=== PATIENT | male | born 1955 | race Caucasian/White ===

== ENCOUNTER 2018-01-31 19:55 | Inpatient (IN) | payer MEDICARE ==
[~2018-01-31] VITALS: Ht 175.3 cm; Wt 82.1 kg
[2018-01-31 20:28] LABS: BASOPHILS # (AUTO) 0.1 (0.0-0.1); BASOPHILS % 0.8 % (0.0-1.0); EOSINOPHILS # (AUTO) 0.1 (0.0-0.4); EOSINOPHILS % 0.9 % (0.0-6.0); HEMATOCRIT 40.2 % (38.2-49.6); HEMOGLOBIN 13.9 g/dL (14.0-18.0); LYMPHOCYTES % 26.8 % (18.0-39.1); MEAN CORPUSCULAR HEMOGLOBIN 29.3 pg (28-32); MEAN CORPUSCULAR HGB CONC 34.6 g/dL (31-35); MEAN CORPUSCULAR VOLUME 84.6 fL (81-99); MONOCYTES # (AUTO) 1.4 (0.2-0.8); MONOCYTES % 9.5 % (4.4-11.3); NEUTROPHILS # (AUTO) 9.1 (2.1-6.9); NEUTROPHILS % 61.4 % (38.7-80.0); PLATELET COUNT 281 x10e3/uL (140-360); RED BLOOD COUNT 4.75 x10e6/uL (4.3-5.7); RED CELL DISTRIBUTION WIDTH 15.6 % (11.7-14.4)
[2018-01-31 20:34] LABS: INR 1.05; PROTHROMBIN TIME 12.9 seconds (11.9-14.5)
[2018-01-31 20:35] LABS: PARTIAL THROMBOPLASTIN TIME 29.8 seconds (23.8-35.5)
[2018-01-31 20:41] LABS: ALBUMIN/GLOBULIN RATIO 1.2 (0.8-2.0); ANION GAP 15.8 mmol/L (8-16); CALCIUM 9.5 mg/dL (8.4-10.2); CREATININE, SERUM 1.35 mg/dL (0.72-1.25); POTASSIUM 3.8 mmol/L (3.5-5.1)
[2018-01-31] MEDS ORDERED: PIPER-TAZ 3.375 GM 50 ML ONE (20:59)
[2018-01-31] MEDS ORDERED: VANCOMYCIN 1GM/NS 250 ML 250 ML ONE (20:59)
[2018-01-31] MEDS: PIPER-TAZ 3.375 GM 50 ML IV SCH (21:15)
[2018-01-31] MEDS: VANCOMYCIN 1GM/NS 250 ML 250 ML IV SCH (21:31)
[2018-01-31] MEDS ORDERED: VANCOMYCIN 1GM/NS 250 ML 250 ML IV SCH (22:00)
[2018-01-31] MEDS ORDERED: DEXTROSE 50% SYRINGE 50 ML IV PRN (22:15)
[2018-01-31] MEDS ORDERED: ONDANSETRON HCL INJ 2 MG/ML VIAL IV PRN (22:15)
[2018-01-31] MEDS ORDERED: HYDROMORPHONE 1MG/1ML INJ IV PRN (22:15)
[2018-01-31] MEDS ORDERED: GABAPENTIN300 MG PO (22:21)
[2018-01-31] MEDS ORDERED: BUPROPION XL150 MG PO (22:21)
[2018-01-31] MEDS ORDERED: JARDIANCE PO (22:21)
[2018-01-31] MEDS ORDERED: OMEPRAZOLE20 MG PO (22:21)
[2018-01-31] MEDS ORDERED: LORAZEPAM1 MG PO (22:21)
[2018-01-31] MEDS ORDERED: GENVOYA PO (22:21)
[2018-01-31] MEDS ORDERED: TESTOSTERO200 MG/1 M IM (22:21)
[2018-01-31] MEDS ORDERED: CRESTOR40 MG PO (22:21)
[2018-01-31] MEDS ORDERED: ACYCLOVIR400 MG PO (22:21)
[2018-01-31] MEDS ORDERED: METFORMIN HCL500 M1 PO (22:21)
[2018-01-31 23:25] VITALS: BP 138/85
[2018-01-31 23:51] VITALS: BP 138/85
[2018-02-01] VITALS (9 sets, daily range): BP systolic 100–138; BP diastolic 56–85
[2018-02-01] MEDS: SODIUM CHLORIDE 0.9% 1000ML 1,000 ML IV SCH ×2 (00:28→06:15)
[2018-02-01] MEDS: PIPER-TAZ 3.375 GM 50 ML IV SCH ×3 (05:26→22:19)
[2018-02-01 05:40] LABS: BASOPHILS # (AUTO) 0.1 (0.0-0.1); BASOPHILS % 0.9 % (0.0-1.0); EOSINOPHILS # (AUTO) 0.2 (0.0-0.4); EOSINOPHILS % 1.3 % (0.0-6.0); HEMATOCRIT 40.3 % (38.2-49.6); HEMOGLOBIN 13.2 g/dL (14.0-18.0); LYMPHOCYTES # (AUTO) 3.6 (1.0-3.2); LYMPHOCYTES % 24.5 % (18.0-39.1); MEAN CORPUSCULAR HEMOGLOBIN 29.1 pg (28-32); MEAN CORPUSCULAR HGB CONC 32.8 g/dL (31-35); MEAN CORPUSCULAR VOLUME 88.8 fL (81-99); MONOCYTES # (AUTO) 1.5 (0.2-0.8); MONOCYTES % 10.1 % (4.4-11.3); NEUTROPHILS # (AUTO) 9.1 (2.1-6.9); NEUTROPHILS % 62.7 % (38.7-80.0); PLATELET COUNT 262 x10e3/uL (140-360); RED BLOOD COUNT 4.54 x10e6/uL (4.3-5.7); RED CELL DISTRIBUTION WIDTH 15.7 % (11.7-14.4)
[2018-02-01 06:11] LABS: ALANINE AMINOTRANSFERASE 19 IU/L (0-55); ALBUMIN 3.2 g/dL (3.5-5.0); ALKALINE PHOSPHATASE 80 IU/L (40-150); ANION GAP 11.9 mmol/L (8-16); BLOOD UREA NITROGEN 17 mg/dL (7-26); BUN/CREATININE RATIO 15 (6-25); CARBON DIOXIDE 23 mmol/L (22-29); CHLORIDE 108 mmol/L (98-107); CREATININE, SERUM 1.11 mg/dL (0.72-1.25); EST GLOMERULAR FILTRATION RATE > 60 ML/MIN (60-); GLUCOSE 127 mg/dL (74-118); POTASSIUM 3.9 mmol/L (3.5-5.1); SODIUM 139 mmol/L (136-145)
[2018-02-01 06:30] LABS: ALBUMIN/GLOBULIN RATIO 1.1 (0.8-2.0)
[2018-02-01] MEDS: INSULIN REGULAR, HUMAN 100 UNIT/1 ML 3ML VIAL SQ SCH ×4 (07:30→20:43)
[2018-02-01] MEDS: VANCOMYCIN 1GM/NS 250 ML 250 ML IV SCH ×2 (08:48→20:58)
[2018-02-01] MEDS: GABAPENTIN 300 MG CAP PO SCH ×3 (08:54→21:00)
[2018-02-01] MEDS: BUPROPION HCL 150 MG TABCR PO SCH (08:54)
[2018-02-01] MEDS: GENVOYA TABLET PO SCH (08:54)
[2018-02-01] MEDS: PANTOPRAZOLE SOD 40 MG TABEC PO SCH (08:54)
[2018-02-01] MEDS: ACYCLOVIR 200 MG CAP PO SCH ×2 (08:54→17:00)
[2018-02-01] MEDS: JARDIANCE 25 MG TAB PO SCH (08:54)
--- NOTE | 2018-02-01 14:03 | History and Physical ---
PRIMARY CARE PROVIDER: Is in [place]. He is visiting. CHIEF COMPLAINT: Swelling and erythema of left ankle. HISTORY OF PRESENT ILLNESS: Mr. Solis is a 62-year-old gentleman who flew in 2 days ago from [place], woke up with some swelling and erythema about the left ankle. Was told by his friend that he might have a blood clot. He came to the ER for evaluation. REVIEW OF SYSTEMS: He denies fever, chills or weight loss. He denies sinus congestion or sore throat. He denies chest pain or palpitations. He denies shortness of breath, wheezing or cough. He denies abdominal pain, nausea, vomiting or melena. He denies dysuria or flank pain. He denies rash or pruritus. He denies joint pain or swelling. He denies headache, vertigo or loss of consciousness. He denies depression, agitation, homicidal or suicidal ideation. PAST MEDICAL HISTORY: Significant for longstanding hypertension, type 2 diabetes, hyperlipidemia, and HIV disease diagnosed in 1988. He has a distant history of tonsillectomy. MEDICATIONS: His current medications include 1. Metformin 1000 mg twice daily. 2. Jardiance 25 mg daily. 3. Crestor 40 mg daily. 4. Bupropion/Wellbutrin XL 450 mg daily. 5. Acyclovir 400 mg twice daily. 6. Genvoya, which is his HIV medication which is Truvada plus another medication, and he takes 1 daily. 7. Omeprazole 20 mg daily for GERD. ALLERGIES: HE HAS A STATED ALLERGY TO CODEINE. FAMILY HISTORY: Remarkable for some scattered hypertension and diabetes. SOCIAL HISTORY: The patient is . Montserratian is his primary language. He is homosexual in stable relationships. He does not smoke, drink or use illegal drugs, and he is generally independently functioning. PHYSICAL EXAM: PSYCHIATRIC: He is alert and oriented times 3 with normal mood and affect. CONSTITUTIONAL: He has a normal body habitus. Is in no acute distress. VITAL SIGNS: Blood pressure 109/79. Pulse 90 and regular. Respiratory rate 20. O2 sat 97% on room air. Temperature 98.5. HEENT: His head is atraumatic. His eyes are anicteric with clear conjunctivae. Ears and nares are without erythema or discharge. Oropharynx is clear. NECK: Is supple with no mass or thyromegaly. LYMPHATIC SYSTEM: He has no palpable cervical, axillary or inguinal adenopathy. CARDIOVASCULAR: His heart has a regular rate and rhythm without murmur or extra heart sound. He has no carotid bruit. He has palpable dorsal pedal pulses. He has some mild swelling about the right ankle. The left ankle has no edema. RESPIRATORY: Lungs are clear to auscultation and percussion with normal respiratory effort. GASTROINTESTINAL: His abdomen is soft without organomegaly, masses or tenderness. CUTANEOUS: His skin is warm and dry to the touch. He has marked erythema to the mid rodriguez on the left leg with marked erythema centered around the medial malleolus extending onto the top of the forefoot. MUSCULOSKELETAL: His joints are in normal alignment without erythema or swelling. He has no calf tenderness. NEUROLOGIC: Exam is nonfocal with intact cranial nerves and no motor or sensory deficits. DIAGNOSTIC STUDIES: Bilateral venous Dopplers were negative for DVT. CBC shows a white count of 14.5 with 62% neutrophils, hemoglobin 13.2, hematocrit 40.3 and platelet count 262,000. Chemistry showed normal electrolytes. CO2 23. Creatinine 1.11, BUN 17 for a normal GFR. Glucose 127. Transaminases, bilirubin, alk phos are normal. Coags are normal. IMPRESSION AND PLAN: 1. Cellulitis left lower leg. The patient has been started empirically on IV vancomycin and Zosyn along with elevation. 2. Human immunodeficiency virus disease. The patient currently has an undetectable HIV count. Will continue his current medications, which he will be taking his own home medications. 3. Type 2 diabetes, which appears to be well controlled. Will continue metformin, Jardiance and Neurontin. The type 2 diabetes is complicated by neuropathy, for which he is taking Neurontin as well, plus will add sliding-scale insulin. 4. Hypertension. Currently controlled on no medications. Will monitor. 5. For prophylaxis, the patient will be on Lovenox for DVT prophylaxis and Protonix for GI prophylaxis. Job#: [id number] ALCIDES
[2018-02-01] MEDS: METFORMIN HCL 500 MG TAB CR PO SCH (17:00)
[2018-02-01] MEDS: ENOXAPARIN SOD INJ 40 MG/0.4 ML SYR SC SCH (17:44)
[2018-02-01] MEDS: ATORVASTATIN 40 MG TAB PO SCH (21:00)
[2018-02-02 05:01] LABS: BASOPHILS # (AUTO) 0.1 (0.0-0.1); BASOPHILS % 1.2 % (0.0-1.0); EOSINOPHILS # (AUTO) 0.3 (0.0-0.4); EOSINOPHILS % 3.6 % (0.0-6.0); HEMATOCRIT 37.7 % (38.2-49.6); HEMOGLOBIN 12.5 g/dL (14.0-18.0); LYMPHOCYTES # (AUTO) 2.9 (1.0-3.2); LYMPHOCYTES % 32.4 % (18.0-39.1); MEAN CORPUSCULAR HEMOGLOBIN 29.2 pg (28-32); MEAN CORPUSCULAR HGB CONC 33.2 g/dL (31-35); MEAN CORPUSCULAR VOLUME 88.1 fL (81-99); MONOCYTES # (AUTO) 0.9 (0.2-0.8); MONOCYTES % 10.1 % (4.4-11.3); NEUTROPHILS # (AUTO) 4.6 (2.1-6.9); NEUTROPHILS % 52.1 % (38.7-80.0); PLATELET COUNT 257 x10e3/uL (140-360); RED BLOOD COUNT 4.28 x10e6/uL (4.3-5.7); RED CELL DISTRIBUTION WIDTH 15.7 % (11.7-14.4)
[2018-02-02 05:05] VITALS: BP 102/51
[2018-02-02 05:26] LABS: ANION GAP 13.8 mmol/L (8-16); BLOOD UREA NITROGEN 14 mg/dL (7-26); BUN/CREATININE RATIO 13 (6-25); CARBON DIOXIDE 22 mmol/L (22-29); CHLORIDE 108 mmol/L (98-107); CREATININE, SERUM 1.04 mg/dL (0.72-1.25); EST GLOMERULAR FILTRATION RATE > 60 ML/MIN (60-); GLUCOSE 148 mg/dL (74-118); POTASSIUM 3.8 mmol/L (3.5-5.1); SODIUM 140 mmol/L (136-145)
[2018-02-02] MEDS: PIPER-TAZ 3.375 GM 50 ML IV SCH ×3 (05:44→22:00)
[2018-02-02 05:47] LABS: THYROID STIMULATING HORMONE 2.219 uIU/mL (0.350-4.940)
[2018-02-02] MEDS: INSULIN REGULAR, HUMAN 100 UNIT/1 ML 3ML VIAL SQ SCH ×4 (07:30→21:00)
[2018-02-02 08:00] VITALS: BP 109/75
[2018-02-02] MEDS: METFORMIN HCL 500 MG TAB CR PO SCH ×2 (08:00→17:00)
[2018-02-02] MEDS: BUPROPION HCL 150 MG TABCR PO SCH (09:00)
[2018-02-02] MEDS: JARDIANCE 25 MG TAB PO SCH (09:00)
[2018-02-02] MEDS: PANTOPRAZOLE SOD 40 MG TABEC PO SCH (09:00)
[2018-02-02] MEDS: GENVOYA TABLET PO SCH (09:00)
[2018-02-02] MEDS: GABAPENTIN 300 MG CAP PO SCH ×4 (09:00→20:43)
[2018-02-02] MEDS: ACYCLOVIR 200 MG CAP PO SCH ×2 (09:00→17:00)
[2018-02-02] MEDS: VANCOMYCIN 1GM/NS 250 ML 250 ML IV SCH ×2 (09:56→21:00)
[2018-02-02 12:00] VITALS: BP 96/96
[2018-02-02 16:00] VITALS: BP 101/76
[2018-02-02] MEDS: ENOXAPARIN SOD INJ 40 MG/0.4 ML SYR SC SCH (17:00)
[2018-02-02 20:00] VITALS: BP 113/78
[2018-02-02] MEDS: ATORVASTATIN 40 MG TAB PO SCH (20:43)
[2018-02-03] VITALS: BP 113/75
[2018-02-03 04:00] VITALS: BP 103/64
[2018-02-03] MEDS: PIPER-TAZ 3.375 GM 50 ML IV SCH (05:00)
[2018-02-03 05:27] LABS: BASOPHILS # (AUTO) 0.1 (0.0-0.1); BASOPHILS % 1.4 % (0.0-1.0); EOSINOPHILS # (AUTO) 0.3 (0.0-0.4); EOSINOPHILS % 3.5 % (0.0-6.0); HEMATOCRIT 38.7 % (38.2-49.6); HEMOGLOBIN 12.9 g/dL (14.0-18.0); LYMPHOCYTES # (AUTO) 2.7 (1.0-3.2); LYMPHOCYTES % 28.3 % (18.0-39.1); MEAN CORPUSCULAR HEMOGLOBIN 29.3 pg (28-32); MEAN CORPUSCULAR HGB CONC 33.3 g/dL (31-35); MONOCYTES # (AUTO) 0.9 (0.2-0.8); MONOCYTES % 9.3 % (4.4-11.3); NEUTROPHILS # (AUTO) 5.4 (2.1-6.9); NEUTROPHILS % 57.2 % (38.7-80.0); PLATELET COUNT 273 x10e3/uL (140-360); RED CELL DISTRIBUTION WIDTH 15.7 % (11.7-14.4)
[2018-02-03 05:55] LABS: ANION GAP 13.7 mmol/L (8-16); BLOOD UREA NITROGEN 14 mg/dL (7-26); BUN/CREATININE RATIO 14 (6-25); CALCIUM 9.4 mg/dL (8.4-10.2); CARBON DIOXIDE 24 mmol/L (22-29); CHLORIDE 105 mmol/L (98-107); CREATININE, SERUM 0.99 mg/dL (0.72-1.25); EST GLOMERULAR FILTRATION RATE > 60 ML/MIN (60-); GLUCOSE 132 mg/dL (74-118); MAGNESIUM 1.9 MG/DL (1.3-2.1); POTASSIUM 3.7 mmol/L (3.5-5.1); SODIUM 139 mmol/L (136-145)
[2018-02-03] MEDS: INSULIN REGULAR, HUMAN 100 UNIT/1 ML 3ML VIAL SQ SCH (07:30)
[2018-02-03] MEDS: METFORMIN HCL 500 MG TAB CR PO SCH (08:00)
[2018-02-03] MEDS ORDERED: CIPRO500 MG PO (08:14)
[2018-02-03] MEDS ORDERED: BACTRIM DS TAB1 EACH PO (08:14)
[2018-02-03 08:17] VITALS: BP 119/77
[2018-02-03 08:30] VITALS: BP 119/77
[2018-02-03] MEDS: ACYCLOVIR 200 MG CAP PO SCH (09:00)
[2018-02-03] MEDS: BUPROPION HCL 150 MG TABCR PO SCH (09:00)
[2018-02-03] MEDS: GENVOYA TABLET PO SCH (09:00)
[2018-02-03] MEDS: GABAPENTIN 300 MG CAP PO SCH (09:00)
[2018-02-03] MEDS: JARDIANCE 25 MG TAB PO SCH (09:00)
[2018-02-03] MEDS: PANTOPRAZOLE SOD 40 MG TABEC PO SCH (09:00)
[2018-02-03] MEDS: VANCOMYCIN 1GM/NS 250 ML 250 ML IV SCH (09:25)
[2018-02-03 12:11] VITALS: BP 112/60
--- NOTE | 2018-02-03 20:53 | Discharge Summary ---
ADMISSION DIAGNOSES: 1. Left lower leg cellulitis. 2. Human immunodeficiency virus. 3. Type 2 diabetes. 4. Hypertension. DISCHARGE DIAGNOSES: 1. Left lower leg cellulitis. 2. Human immunodeficiency virus. 3. Type 2 diabetes. 4. Hypertension. HISTORY: Patient has a history of long-standing hypertension, type 2 diabetes, hyperlipidemia, and HIV diagnosed in 1988. Surgical history of tonsillectomy. HOSPITAL COURSE: A 62-year-old male flew in 2 days ago from [place], woke up with some swelling and erythema around the left ankle. He was told by his friend that he might have a blood clot, so he came to the ER for evaluation. On admission, patient had bilateral venous Doppler that showed no DVT. Blood cultures were negative. Patient is started on IV vanc and Zosyn and home medications for his diabetes and HIV as well as hypertension. Hypertension appears to be controlled with no medications. After few days of IV antibiotics, the left lower leg looks much better. Patient's pain is controlled. Patient will be discharged home on Bactrim and Cipro for 5 more days. He will continue his other home medications. He will follow up with primary care in 1 to 2 weeks. Vital signs stable. Patient afebrile. Patient understands discharge instructions and agreed to discharge plan. Dictated by Tamia Patel NP HUSSEIN MARTIN MD Job#: [id number]
== END 2018-02-03 13:24 | disposition home or self-care (01) | DRG 603 ==
LOC: ER 19:55 → ERHOLD 22:15 → MED/SURG3 23:22
PROVIDERS: ADMIT Internal Medicine; ATTEND Internal Medicine
DX: L03.116 Cellulitis of left lower limb (principal); Z21 Asymptomatic human immunodeficiency virus [HIV] infection status; E78.5 Hyperlipidemia, unspecified; E11.65 Type 2 diabetes mellitus with hyperglycemia; I10 Essential (primary) hypertension; E11.40 Type 2 diabetes mellitus with diabetic neuropathy, unspecified; Z79.84 Long term (current) use of oral hypoglycemic drugs; Z88.5 Allergy status to narcotic agent
CPT/HCPCS: 36415; 80048; 80053; 82948; 83036; 83605; 83735; 84443; 85025; 85610; 85730; 87040; 93970; 96361; 99284; J1650; J2543; J3370; J7030

== ENCOUNTER 2018-02-12 18:36 | Inpatient (IN) | payer MEDICARE, OTHER ==
[~2018-02-12] VITALS: Ht 175.3 cm; Wt 78.0 kg
[~2018-02-12 18:36] MED LIST: ACYCLOVIR400 MG PO; BACTRIM DS TAB1 EACH PO; BUPROPION XL150 MG PO; CIPRO500 MG PO; CRESTOR40 MG PO; GABAPENTIN300 MG PO; GENVOYA PO; JARDIANCE PO; LORAZEPAM1 MG PO; METFORMIN HCL500 M1 PO; OMEPRAZOLE20 MG PO; TESTOSTERO200 MG/1 M IM
[2018-02-12] MEDS ORDERED: ASPIRIN 81 MG CHEW TAB PO STA (18:37)
[2018-02-12] MEDS ORDERED: NITROGLYCERIN/D5W 200 MCG/ML 250 ML IV STA (18:37)
[2018-02-12] MEDS ORDERED: NITROGLYCERIN/D5W 200 MCG/ML 250 ML ONE (18:40)
[2018-02-12] MEDS ORDERED: ASPIRIN 81 MG CHEW TAB PO PRN (18:45)
[2018-02-12 18:50] LABS: BASOPHILS # (AUTO) 0.1 (0.0-0.1); BASOPHILS % 0.5 % (0.0-1.0); EOSINOPHILS # (AUTO) 0.1 (0.0-0.4); EOSINOPHILS % 0.3 % (0.0-6.0); HEMATOCRIT 44.5 % (38.2-49.6); HEMOGLOBIN 15.2 g/dL (14.0-18.0); LYMPHOCYTES # (AUTO) 1.4 (1.0-3.2); LYMPHOCYTES % 7.1 % (18.0-39.1); MEAN CORPUSCULAR HEMOGLOBIN 29.7 pg (28-32); MEAN CORPUSCULAR HGB CONC 34.2 g/dL (31-35); MEAN CORPUSCULAR VOLUME 86.9 fL (81-99); MONOCYTES # (AUTO) 1.4 (0.2-0.8); MONOCYTES % 7.1 % (4.4-11.3); NEUTROPHILS # (AUTO) 16.9 (2.1-6.9); NEUTROPHILS % 84.6 % (38.7-80.0); PLATELET COUNT 338 x10e3/uL (140-360); RED BLOOD COUNT 5.12 x10e6/uL (4.3-5.7)
[2018-02-12 18:58] LABS: INR 1.03; PROTHROMBIN TIME 12.7 seconds (11.9-14.5)
[2018-02-12] MEDS ORDERED: HEPARIN SOD (PORCINE) 5,000 UNIT/ML VIAL IV ONE (19:00)
[2018-02-12] MEDS ORDERED: HEPARIN 25,000U/0.45% NS 250ML 900 UNIT in SODIUM CHLORIDE 0.9% 250ML 0 ML IV SCH (19:00)
[2018-02-12] MEDS ORDERED: HEPARIN 25,000U/0.45% NS 250ML 250 ML ONE (19:03)
[2018-02-12 19:08] LABS: ALBUMIN 4.3 g/dL (3.5-5.0); ALBUMIN/GLOBULIN RATIO 1.3 (0.8-2.0); ANION GAP 16.9 mmol/L (8-16); CALCIUM 10.1 mg/dL (8.4-10.2); CREATININE, SERUM 1.37 mg/dL (0.72-1.25); POTASSIUM 3.9 mmol/L (3.5-5.1)
[2018-02-12 19:14] LABS: CREATINE KINASE MB 3.8 ng/mL (0-5.0)
[2018-02-12] MEDS ORDERED: SODIUM CHLORIDE 0.9% 1000ML 1,000 ML ONE (19:19)
--- NOTE | 2018-02-12 19:24 | Diagnostic Imaging Report ---
EXAMINATION: CHEST SINGLE (PORTABLE) INDICATION: \S\ERMD ORDER \S\[id number] \S\1845 \S\Y COMPARISON: None FINDINGS: AP view TUBES and LINES: None. LUNGS: Lungs are well inflated. Bibasilar atelectasis. Bilateral interstitial edema. PLEURA: Trace left pleural effusion. No pneumothorax. HEART AND MEDIASTINUM: The cardiac silhouette is mildly prominent. BONES AND SOFT TISSUES: No acute osseous lesion. Soft tissues are unremarkable. UPPER ABDOMEN: No free air under the diaphragm. IMPRESSION: Prominent cardiac silhouette with associated bilateral interstitial edema. Signed by: Dr. Adore Sidhu M.D. on 02/12/2018 7:21 PM
[2018-02-12] MEDS ORDERED: HEPARIN 25,000U/0.45% NS 250ML 250 ML IV SCH (19:30)
[2018-02-12] MEDS ORDERED: ONDANSETRON HCL INJ 2 MG/ML VIAL IV STA (19:37)
[2018-02-12] MEDS ORDERED: MORPHINE SULFATE INJ 4 MG/ML INJ IV PRN (20:00)
[2018-02-12] MEDS ORDERED: METOPROLOL TARTRATE 25 MG TAB PO NR (20:15)
[2018-02-12] MEDS ORDERED: ONDANSETRON HCL INJ 2 MG/ML VIAL IV PRN (20:30)
[2018-02-12] MEDS ORDERED: DEXTROSE 50% SYRINGE 50 ML IV PRN (20:30)
--- NOTE | 2018-02-12 21:02 | Diagnostic Imaging Report ---
EXAM: CTA OF THE THORACIC AORTA INDICATION: \S\R/O DISSECTIOIN \S\Y COMPARISON: Chest radiograph 02/12/2018 TECHNIQUE: Multi-detector CT technology was employed. CTA Gated axial imaging of the chest was performed after the administration of IV contrast. IV CONTRAST: 100 mL of Isovue-370 ORAL CONTRAST: None COMPLICATIONS: None RADIATION DOSE: Total DLP: 960.3 mGy*cm Estimated effective dose: (DLP x 0.015 x size factor) mSv CTDIvol has been reviewed. It is below the limits set by the Radiation Protocol Committee (RPC). For optimization of anatomic evaluation, multiplanar reconstruction, maximum intensity projections, and advanced 3-D off-line postprocessing were performed on a dedicated stand-alone workstation under the direct supervision of the interpreting physician. FINDINGS: Potential study limitations: None. LINES/ TUBES: None. VASCULAR WITH ADVANCED 3-D OFF-LINE POSTPROCESSING: Aortic valve morphology is trileaflet and contains mild calcifications. The thoracic aorta is normal in course, caliber, and contour. There is no acute aortic pathology, such as dissection, intramural hematoma, or contained rupture. Aortic plaques: None. The arch vessel branching pattern is conventional. All of the arch branch vessels appear widely patent in their proximal portions. Judicial Law Clerk dimensions of the thoracic aorta are as follows: 2.6 cm at the aortic annulus 3.4 x 3.2 cm at the sinuses of Valsalva (the sinotubular junction is preserved) 3.2 cm at the mid ascending aorta 2.9 cm at the distal ascending aorta 2.4 cm at the mid transverse arch 2.5 cm at the proximal descending thoracic aorta 2.1 cm at the diaphragmatic hiatus. CHEST: LUNGS AND AIRWAYS: Subsegmental atelectasis in both lung bases. Bilateral interstitial edema. Airways are patent. PLEURA: The pleural spaces are clear. Mild pleural thickening in both lower lobes may reflect prior effusion/inflammation. No calcified pleural plaques. HEART AND MEDIASTINUM: The thyroid gland is normal. Few mildly prominent noncalcified right hilar lymph nodes measuring up to 1.1 cm on series 5, image 51 are indeterminate but may be reactive. The main pulmonary artery is normal in size. No large filling defects in the main pulmonary artery and major branches. The cardiac chambers demonstrate normal atrioventricular and ventriculoarterial concordance, and systemic and pulmonary venous return. The left ventricle appears mildly prominent. The coronary arteries have normal origins and courses. There are mild to moderate coronary calcifications identified, though this study was not optimized for coronary artery evaluation. Small low-attenuation pericardial effusion measuring 1 cm in thickness. LIMITED ABDOMEN: The limited images of the upper abdomen reveal no abnormalities of the visualized organs. BONES: Mild multilevel degenerative changes of the thoracic spine. IMPRESSION: 1. Normal thoracic aorta. Specifically, no aortic dissection or intramural hematoma. 2. Prominent left ventricle with associated bilateral interstitial edema and low-attenuation small pericardial effusion. 3. Bibasilar atelectasis. No consolidations to suggest pneumonia. 4. Normal size of the main pulmonary arteries without large filling defects on limited evaluation. 5. Mild to moderate coronary artery calcifications. Signed by: Dr. Adore Sidhu M.D. on 02/12/2018 8:58 PM
[2018-02-12] MEDS: SODIUM CHLORIDE 0.9% 1000ML 1,000 ML IV SCH ×2 (21:14→22:53)
[2018-02-12 21:28] LABS: CLARITY,URINE CLEAR (CLEAR); COLOR,URINE YELLOW (YELLOW); KETONES,URINE NEGATIVE (NEGATIVE); LEUKOCYTE ESTERASE ,URINE NEGATIVE (NEGATIVE); NITRITE,URINE NEGATIVE (NEGATIVE); PROTEIN,URINE DIPSTICK NEGATIVE (NEGATIVE)
[2018-02-12 21:29] LABS: BILIRUBIN,URINE NEGATIVE (NEGATIVE); URINE UROBILINOGEN 0.2 mg/dL (0.2 - 1)
[2018-02-12 21:37] LABS: MUCUS,URINE FEW (RARE); RBC,URINE 0-5 /HPF (0-5); WBC,URINE (MAN) 0-5 /HPF (0-5)
[2018-02-12] MEDS: INSULIN REGULAR, HUMAN 100 UNIT/1 ML 3ML VIAL SQ SCH (21:40)
[2018-02-12] MEDS ORDERED: SODIUM CHLORIDE 0.9% 50ML 50 ML ONE (22:29)
[2018-02-12] MEDS ORDERED: IOPAMIDOL 370 MG/ML 200 ML INFUS..BTL INJ ONE (22:29)
[2018-02-12 22:36] LABS: CREATINE KINASE MB 2.7 ng/mL (0-5.0)
--- NOTE | 2018-02-12 22:50 | Diagnostic Imaging Report ---
EXAM: US GALLBLADDER DATE: 02/12/2018 12:00 AM INDICATION: \S\EPIGASTRIC PAIN TO CHEST/NECK, COMPARISON: None TECHNIQUE: Transverse and longitudinal mccain scale and color doppler sonographic images of the upper abdomen were obtained. FINDINGS: LIVER 18.6 cm in the right midclavicular line, enlarged. Increased echogenicity, normal contour, no masses. GALLBLADDER No stones, sludge, wall-thickening or pericholecystic fluid. Negative sonographic Fuller's sign. BILE DUCTS No intra nor extra-hepatic biliary dilation. Common bile duct measures cm PANCREAS: Poorly visualized due to overlying bowel gas. RIGHT KIDNEY: 10.9 cm Echogenicity: Normal Collecting System: No hydronephrosis Stones: 7 mm echogenic focus of the interpolar region with twinkle artifact, likely a stone. Cyst/Mass: None VESSELS: Aorta: Not well-visualized due to overlying bowel gas Inferior Vena Cava: Visualized portions are normal Main Portal Vein: 1.3 cm, with hepatopetal flow. FREE FLUID: None IMPRESSION: 1. No cholelithiasis or cholecystitis. 2. Hepatic steatosis with hepatomegaly. 3. Nonobstructive right nephrolithiasis. Signed by: Dr Coral Burden MD on 02/12/2018 10:46 PM
[2018-02-12] MEDS: AZITHROMYCIN 500MG/NS 250 ML 250 ML IV SCH (22:53)
[2018-02-13] VITALS (11 sets, daily range): BP systolic 73–121; BP diastolic 43–78
[2018-02-13] MEDS: MORPHINE SULFATE 2 MG/ML SYR IV PRN ×3 (01:27→10:56)
[2018-02-13 02:31] LABS: INR 1.19; PROTHROMBIN TIME 14.2 seconds (11.9-14.5)
[2018-02-13 02:32] LABS: PARTIAL THROMBOPLASTIN TIME 31.9 seconds (23.8-35.5)
[2018-02-13 02:52] LABS: CREATINE KINASE MB 1.7 ng/mL (0-5.0)
[2018-02-13] MEDS: SODIUM CHLORIDE 0.9% 1000ML 1,000 ML IV SCH ×3 (05:11→23:06)
[2018-02-13] MEDS ORDERED: ATIVAN1 MG PO (05:27)
[2018-02-13 05:42] LABS: BASOPHILS # (AUTO) 0.1 (0.0-0.1); BASOPHILS % 0.3 % (0.0-1.0); EOSINOPHILS % 0.1 % (0.0-6.0); HEMATOCRIT 37.7 % (38.2-49.6); HEMOGLOBIN 12.5 g/dL (14.0-18.0); LYMPHOCYTES # (AUTO) 2.3 (1.0-3.2); MEAN CORPUSCULAR HEMOGLOBIN 29.6 pg (28-32); MEAN CORPUSCULAR HGB CONC 33.2 g/dL (31-35); MEAN CORPUSCULAR VOLUME 89.1 fL (81-99); MONOCYTES # (AUTO) 1.5 (0.2-0.8); MONOCYTES % 8.2 % (4.4-11.3); NEUTROPHILS # (AUTO) 13.9 (2.1-6.9); NEUTROPHILS % 77.7 % (38.7-80.0); PLATELET COUNT 294 x10e3/uL (140-360); RED BLOOD COUNT 4.23 x10e6/uL (4.3-5.7); RED CELL DISTRIBUTION WIDTH 15.2 % (11.7-14.4)
[2018-02-13] MEDS ORDERED: LORAZEPAM 0.5 MG TAB PO PRN (06:00)
--- NOTE | 2018-02-13 06:19 | Diagnostic Imaging Report ---
CHEST SINGLE (PORTABLE), 02/13/2018 5:00 AM Technique: CHEST SINGLE (PORTABLE) Comparison: 7.31.18 Clinical history: \S\SOB CP \S\[id number] \S\0545 Findings: See Impression Impression: 1. Stable prominent cardiac silhouette, accentuated by portable technique. 2. Unchanged mild bibasilar opacities, likely atelectasis/scarring. 3. No significant effusion. No pneumothorax. Signed by: Dr Coral Burden MD on 02/13/2018 6:16 AM
[2018-02-13 06:20] LABS: ALANINE AMINOTRANSFERASE 17 IU/L (0-55); ALBUMIN 3.1 g/dL (3.5-5.0); ALBUMIN/GLOBULIN RATIO 1.1 (0.8-2.0); ALKALINE PHOSPHATASE 74 IU/L (40-150); ANION GAP 12.1 mmol/L (8-16); BLOOD UREA NITROGEN 14 mg/dL (7-26); BUN/CREATININE RATIO 13 (6-25); CALCIUM 8.5 mg/dL (8.4-10.2); CARBON DIOXIDE 23 mmol/L (22-29); CHLORIDE 107 mmol/L (98-107); CHOL/HDL RATIO 3.1 (3.9-4.7); CHOLESTEROL 78 MD/DL (0-199); CREATININE, SERUM 1.07 mg/dL (0.72-1.25); EST GLOMERULAR FILTRATION RATE > 60 ML/MIN (60-); GLUCOSE 147 mg/dL (74-118); HDL CHOLESTEROL 25 MG/DL (40-60); LDL CHOLESTEROL 20 MG/DL (60-130); MAGNESIUM 1.6 MG/DL (1.3-2.1); POTASSIUM 4.1 mmol/L (3.5-5.1); SODIUM 138 mmol/L (136-145); TRIGLYCERIDES 166 MG/DL (0-149)
[2018-02-13] MEDS: INSULIN REGULAR, HUMAN 100 UNIT/1 ML 3ML VIAL SQ SCH ×4 (07:30→21:00)
[2018-02-13 08:33] LABS: INR 1.29; PROTHROMBIN TIME 15.1 seconds (11.9-14.5)
[2018-02-13 08:45] LABS: CREATINE KINASE MB 1.2 ng/mL (0-5.0)
--- NOTE | 2018-02-13 08:57 | History and Physical ---
PRIMARY CARE PHYSICIAN: Dr. Lopez Roberts in [place], [place]. CHIEF COMPLAINT: Crushing chest pain. HISTORY OF PRESENT ILLNESS: Kvaft-fop-phaf-old man with a history of newly diagnosed diabetes mellitus, HIV/AIDS diagnosed in 1981 as well as cigarette use, now developing crushing chest pain in the substernal region with associated shortness of breath and dizziness. He had traveled here to [place] in December 2016. In the emergency room, EKG showed some ST changes in lead V2. Patient was admitted to the ICU for acute coronary syndrome and started on heparin. Currently continues to have some discomfort in the substernal region with deep inspiration, but no shortness of breath at this time. PAST MEDICAL HISTORY: Hypertension, diabetes mellitus, HIV/AIDS diagnosed in 1981, cigarette use. PAST SURGICAL HISTORY: surgery. ALLERGIES: PER ELECTRONIC MEDICAL RECORD. FAMILY/SOCIAL HISTORY: Patient is single. He has no children. One pack of cigarette per day. No alcohol or illicits. MEDICATIONS: Per electronic medical record. REVIEW OF SYSTEMS: Currently, he denies any dizziness, fever, chills, sweats, nausea, vomiting, diarrhea, headache, blurred vision, leg pain. PHYSICAL EXAMINATION: VITAL SIGNS: Have been reviewed. GENERAL APPEARANCE: Tired-appearing man resting in bed. HEENT: Anicteric. Pupils respond to light. No oral lesions. CARDIOVASCULAR: Normal S1 and S2. LUNGS: Moderate breath sounds. ABDOMEN: Soft, nontender. MUSCULOSKELETAL: He has mild discomfort in the lower substernal region. EXTREMITIES: No edema or calf tenderness. NEUROLOGICAL: Alert and oriented x3. Moving all extremities. SKIN: Dry with pink-colored toenails. PSYCHIATRIC: Flat affect. LABS: Reviewed. MEDICATIONS: Reviewed. ASSESSMENT: Zuwwf-ajl-sdmv-old man: 1. Rule out acute coronary syndrome. 2. Hypotension. 3. Cigarette use. 4. Diabetes mellitus. 5. Overweight state. 6. Sepsis. 7. Pericardial effusion on echocardiogram. 8. Hepatic steatosis with hepatomegaly. 9. Pulmonary edema. 10. Human immunodeficiency virus/acquired immunodeficiency syndrome. PLAN: 1. Continue heparin drip. 2. Follow up cardiology recommendations. 3. Rehydrate patient in the setting of hypotension and sepsis. 4. Continue IV azithromycin. Add IV Zosyn and give 1 dose of IV vancomycin. 5. Obtain cultures. 6. Obtain hemoglobin A1c. 7. LDL is 20, triglycerides 166. 8. Start nicotine patch. 9. Obtain CD4 count. 10. Continue aspirin and Plavix. 11. Add Pepcid. 12. Disposition. Monitor closely in ICU and obtain TSH and use sliding scale insulin. Critical care time more than 35 minutes. Job#: [id number]
[2018-02-13] MEDS ORDERED: METOPROLOL TARTRATE 25 MG TAB PO SCH (09:00)
[2018-02-13] MEDS ORDERED: CLOPIDOGREL BISULFATE 75 MG TAB PO SCH (09:00)
[2018-02-13] MEDS: PIPER-TAZ 3.375 GM 50 ML IV SCH ×3 (09:36→20:30)
[2018-02-13] MEDS: FAMOTIDINE 20 MG/2 ML VIAL IV SCH ×2 (09:36→17:12)
[2018-02-13] MEDS: VANCOMYCIN 1GM/NS 250 ML 250 ML IV SCH (09:36)
[2018-02-13] MEDS: AZITHROMYCIN 500MG/NS 250 ML 250 ML IV SCH (09:36)
[2018-02-13] MEDS: NICOTINE 21 MG/EA PATCH TOP SCH (09:37)
[2018-02-13] MEDS: ASPIRIN 325 MG TAB EC PO SCH (09:39)
--- NOTE | 2018-02-13 11:26 | Consultation ---
DATE OF CONSULTATION: February 13, 2018 CARDIOLOGY CONSULTATION ATTENDING PHYSICIAN: Dr. Hussein Luque CLINICAL HISTORY: This is a 62-year-old white man who was recently discharged after being treated for cellulitis. Admitted via the emergency room because of chest pressure of 1 day's duration. According to the patient, he has had chest pressure on and off for approximately 1 to 2 years. However, it was mild, and he did not seek medical attention. He said he has had several EKGs in the last year said to be normal. He is from [place] and has a history of HIV. He is taking HIV medication. He came to the [place] area around 01/29/2018 for his brother's . On 01/31/2018, he was admitted for cellulitis of the left foot, treated and released. No EKG was done at that time. He presented at around 6:30 p.m. after having had chest pains all day since he woke up. Since then, it appears to have worsened around 3 p.m. His cardiac enzymes, however, remain negative. He did have a temperature of 99 degrees and white count of 20,000. He had pleuritic pains located mainly in the xiphoid area with some radiation to both right and left chest. The pain is worse when he takes a deep breath. Echocardiogram showed pericardial effusion of approximately 0.4 to 0.8 cm anteriorly with minimal posteriorly. CT scan showed pericardial effusion with no other abnormalities. His creatinine was 1.37. Ultrasound of the gallbladder was negative. Cardiology consultation requested. PAST MEDICAL HISTORY: Remarkable for hypertension, type-2 diabetes, hyperlipidemia, HIV, peripheral neuropathy. MEDICATIONS AT HOME: Include: 1. Metformin 1,000 mg b.i.d. 2. Jardiance 25 mg daily. 3. Crestor 40 mg daily. 4. Wellbutrin XL 450 mg daily. 5. Acyclovir 400 mg p.o. b.i.d. 6. Genvoya for HIV, takes daily. 7. Omeprazole 20 mg daily. 8. Lisinopril 5 mg p.o. daily. 9. Gabapentin. 10. Fluconazole. 11. He is also taking lorazepam. ALLERGIES: CODEINE. PAST SURGICAL HISTORY: Tonsillectomy, hip surgery. PERSONAL / SOCIAL HISTORY: He was a cigarette smoker since age 21 and continued to smoke. He was a heavy drinker but stopped drinking approximately 2 years ago. 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 FAMILY HISTORY: Remarkable for brother from myocardial infarction in his 50s. Another brother in his 80s from old age. Father had cancer, melanoma. Mother in a long-term in her 80s of unclear reasons. REVIEW OF SYSTEMS: Noncontributory. PHYSICAL EXAMINATION GENERAL: He is alert and coherent, appears to be comfortable, but he has a headache. He is not participating in conversation as lively as expected. CARDIAC: Jugular veins are not distended. S1, S2 were regular. There is no appreciable murmur. LUNGS: Clear. ABDOMEN: Soft. Bowel sounds are present. EXTREMITIES: No cyanosis, clubbing or edema. LABORATORY STUDIES: Electrocardiogram initially showed ST-elevation only in V2, no reciprocal changes. Subsequently, there is mild anterior ST-segment upsloping elevation with no reciprocal changes. There is some NE depression in the limb leads. IMPRESSION 1. Pericarditis of undetermined etiology in an immunosuppressed patient with human immunodeficiency virus on human immunodeficiency virus medications. 2. Human immunodeficiency virus on human immunodeficiency virus medications. 3. Diabetes. 4. Hypertension. 5. Hyperlipidemia. 6. Family history of coronary artery disease. 7. Recent hospitalization for left leg cellulitis. 8. Peripheral neuropathy. RECOMMENDATION: Treatment for pericarditis. Workup for immunosuppression. This patient is scheduled to return to [place]. Will probably let his doctor at home follow up concerning his pericardial effusion. In the meantime, anti-inflammatory medications such as aspirin may be helpful. Job#: [id number] cc:MD HUSSEIN HOOPER MD
--- NOTE | 2018-02-13 11:31 | Cardiology Report ---
DATE OF STUDY: February 12, 2018 ECHOCARDIOGRAM ATTENDING PHYSICIANS: Hussein Luque MD, and Robin Rm MD AGE: 62. M-MODE: Normal chamber sizes. Left ventricular hypertrophy. Normal contractility. Normal mitral and aortic valves. Pericardial effusion more anteriorly. SECTOR SCAN: Normal chamber sizes. Left ventricular hypertrophy. Ejection fraction is approximately 70%. No regional wall motion abnormalities. Mitral, aortic and tricuspid valves are grossly normal. There is pericardial effusion measuring 0.4 to 0.8 anteriorly and much less posteriorly. There is no evidence of cardiac tamponade. CARDIAC DOPPLER STUDY WITH COLOR: Aortic velocity is 2.1 meters per second. There is trace mitral and tricuspid regurgitation. CONCLUSIONS 1. Pericardial effusion predominantly anteriorly and very minor amount posteriorly. The anterior effusion measures 0.4 to 0.8 cm. There is no evidence of cardiac tamponade. 2. Left ventricular hypertrophy with ejection fraction of approximately 70%. 3. Slightly increased aortic velocity of 2.1 meters per second. 4. Trace tricuspid and mitral regurgitation. Job#: [id number] cc:MD HUSSEIN HOOPER MD
[2018-02-13] MEDS: GABAPENTIN 300 MG CAP PO SCH ×3 (13:00→21:00)
--- NOTE | 2018-02-13 16:12 | Consultation ---
DATE OF CONSULTATION: February 13, 2018 REASON FOR CONSULTATION: HIV. HISTORY OF PRESENT ILLNESS: This patient is a very pleasant 62-year-old man with history of HIV. The patient was recently with cellulitis of his leg. He was treated and discharged home. The patient was diagnosed with HIV since 1981. The patient comes in with chest pain and shortness of breath. Patient came to the emergency room. He was evaluated and had been seen by Dr. Castro Fallon and apparently he had 3 sets of cardiac enzymes, [address] negative[address] some [address] changes. Echocardiogram was done and there was concern for pericarditis. When is saw the patient he was doing much better, no chest pain when I saw him. PAST MEDICAL HISTORY: Hypertension, diabetes mellitus, HIV and AIDS. PAST SURGICAL HISTORY: Denied. ALLERGIES: NKA. SOCIAL HISTORY: He smokes cigarettes. No drug abuse alcohol or abuse at the present time. REVIEW OF SYSTEMS: HEENT: There is no headache or visual changes, hearing changes. GI: There is no nausea and no vomiting, no diarrhea. CARDIAC: No arrhythmia. NEUROLOGIC: No seizure activity. SKIN: There is no rash. HOME MEDICATIONS: Metformin, Crestor, Wellbutrin, acyclovir, Genvoya, lisinopril and gabapentin. LABORATORY DATA: Reviewed. White count on admission was 20,000 and today, 17.8, hemoglobin 12.5, hematocrit 37. Platelet of 294,000. His sodium 138, potassium 4.1, creatinine 1.07. Blood cultures are still pending. PHYSICAL EXAMINATION: GENERAL: He is currently alert and oriented and does not seem to be in acute distress. VITAL SIGNS: Stable, currently afebrile. HEENT: Not icteric. NECK: Supple. CHEST: Clear bilaterally. HEART: S1 and S2, no murmur. ABDOMEN: Soft. Bowel sounds present. No tenderness. No hepatosplenomegaly. EXTREMITIES: No edema. SKIN: No rash. IMPRESSION: Pericarditis. RECOMMENDATIONS: Recommend colchicine and ibuprofen. For HIV continue his home medications. Diabetes mellitus. Hypertension. Place on medicine. The patient can leave the intensive care unit. Give Motrin 800 mg p.o. t.i.d. Will follow with you. Job#: [id number]
[2018-02-13] MEDS ORDERED: CRESTOR 10MG PO SCH (21:00)
[2018-02-14] VITALS (7 sets, daily range): BP systolic 98–111; BP diastolic 66–76
[2018-02-14] MEDS: MORPHINE SULFATE 2 MG/ML SYR IV PRN (00:30)
[2018-02-14] MEDS: SODIUM CHLORIDE 0.9% 1000ML 1,000 ML IV SCH ×2 (02:15→08:39)
[2018-02-14] MEDS: PIPER-TAZ 3.375 GM 50 ML IV SCH ×2 (02:20→08:37)
[2018-02-14 05:07] LABS: BASOPHILS # (AUTO) 0.1 (0.0-0.1); BASOPHILS % 0.6 % (0.0-1.0); EOSINOPHILS # (AUTO) 0.1 (0.0-0.4); EOSINOPHILS % 0.9 % (0.0-6.0); HEMATOCRIT 36.8 % (38.2-49.6); HEMOGLOBIN 12.3 g/dL (14.0-18.0); LYMPHOCYTES # (AUTO) 2.1 (1.0-3.2); LYMPHOCYTES % 16.3 % (18.0-39.1); MEAN CORPUSCULAR HEMOGLOBIN 29.6 pg (28-32); MEAN CORPUSCULAR HGB CONC 33.4 g/dL (31-35); MEAN CORPUSCULAR VOLUME 88.5 fL (81-99); MONOCYTES # (AUTO) 1.1 (0.2-0.8); MONOCYTES % 8.7 % (4.4-11.3); NEUTROPHILS # (AUTO) 9.3 (2.1-6.9); NEUTROPHILS % 72.9 % (38.7-80.0); PLATELET COUNT 284 x10e3/uL (140-360); RED BLOOD COUNT 4.16 x10e6/uL (4.3-5.7); RED CELL DISTRIBUTION WIDTH 15.3 % (11.7-14.4)
[2018-02-14 05:19] LABS: ANION GAP 15.2 mmol/L (8-16); BLOOD UREA NITROGEN 11 mg/dL (7-26); BUN/CREATININE RATIO 11 (6-25); CALCIUM 9.1 mg/dL (8.4-10.2); CARBON DIOXIDE 20 mmol/L (22-29); CHLORIDE 107 mmol/L (98-107); CREATININE, SERUM 1.01 mg/dL (0.72-1.25); EST GLOMERULAR FILTRATION RATE > 60 ML/MIN (60-); GLUCOSE 98 mg/dL (74-118); MAGNESIUM 1.8 MG/DL (1.3-2.1); POTASSIUM 4.2 mmol/L (3.5-5.1); SODIUM 138 mmol/L (136-145)
[2018-02-14] MEDS: INSULIN REGULAR, HUMAN 100 UNIT/1 ML 3ML VIAL SQ SCH (07:30)
[2018-02-14] MEDS ORDERED: SODIUM BICARBONATE 650 MG TAB PO ONE (07:45)
[2018-02-14] MEDS: VANCOMYCIN 1GM/NS 250 ML 250 ML IV SCH (08:38)
[2018-02-14] MEDS: NICOTINE 21 MG/EA PATCH TOP SCH (08:38)
[2018-02-14] MEDS: FAMOTIDINE 20 MG/2 ML VIAL IV SCH ×2 (08:38→09:00)
[2018-02-14] MEDS: AZITHROMYCIN 500MG/NS 250 ML 250 ML IV SCH (08:38)
[2018-02-14] MEDS: ASPIRIN 325 MG TAB EC PO SCH ×2 (08:38→09:00)
[2018-02-14] MEDS: GABAPENTIN 300 MG CAP PO SCH ×2 (08:38→09:00)
[2018-02-14] MEDS: BUPROPION HCL 150 MG TABCR PO SCH ×2 (08:38→09:00)
[2018-02-14] MEDS ORDERED: NON-FORMULARY MEDICATION (Rosuvastatin Calcium (Crestor) 40 MG) PO SCH (09:00)
[2018-02-14] MEDS ORDERED: MOTRIN200 MG PO (11:36)
--- NOTE | 2018-02-14 14:10 | Discharge Summary ---
ADMISSION DIAGNOSES 1. Rule out acute coronary syndrome. 2. Hypotension. 3. Cigarette use. 4. Diabetes. 5. Sepsis. 6. Overweight. 7. Pericardial effusion. 8. Hepatic steatosis. 9. Pulmonary edema. 10. Human immunodeficiency virus. DISCHARGE DIAGNOSES 1. Rule out acute coronary syndrome. 2. Hypotension. 3. Cigarette use. 4. Diabetes. 5. Sepsis. 6. Overweight. 7. Pericardial effusion. 8. Hepatic steatosis. 9. Pulmonary edema. 10. Human immunodeficiency virus. 11. Pericarditis, viral. HISTORY: Patient has a history of hypertension, type 2 diabetes, HIV and AIDS diagnosed in , and cigarette use. HOSPITAL COURSE: A 62-year-old male, newly diagnosed with diabetes, developed crushing chest pain in the substernal region associated with shortness of breath and dizziness. In the emergency room, EKG showed ST changes in lead V2. Patient was admitted to ICU for followup and started on heparin. An echo was done that showed pericardial effusion, predominantly anteriorly and very minor amount posteriorly. No evidence of tamponade. EF of 70%. Trace tricuspid and mitral regurg. Gallbladder ultrasound showed no cholelithiasis or cholecystitis. Hepatic steatosis with hepatomegaly, not obstructive right nephrolithiasis. Chest x-ray showed prominent cardiac silhouette with associated bilateral interstitial edema. No pneumothorax. No significant effusion. Blood cultures negative. Urine culture negative. Cardio was consulted, who said that the pericarditis is likely viral and he should follow up with his doctor regarding the pericardial effusion. Antiinflammatory meds were started to help with pain. ID was consulted, who recommended ibuprofen 800 t.i.d. for 3 weeks. On day of discharge, WBC 12.7, hemoglobin 12.3, hematocrit 36.8. Sodium 138, potassium 4.2, creatinine of 1.01, GFR over 60. CD4 pending. Vital signs stable. Patient afebrile. Patient feels much better and is ready to discharge home. He agrees to plan and followup. Dictated by Tamia Patel NP. HUSSEIN MARTIN MD Job#: [id number] TA
== END 2018-02-14 13:18 | disposition home or self-care (01) | DRG 975 ==
LOC: ER 18:36 → OBSVTOIN 20:40 → ERHOLD 20:40 → ICU 02-13 01:00
PROVIDERS: ADMIT Internal Medicine; ATTEND Internal Medicine
DX: A41.9 Sepsis, unspecified organism (principal); B20 Human immunodeficiency virus [HIV] disease; I30.1 Infective pericarditis; J81.1 Chronic pulmonary edema; K76.0 Fatty (change of) liver, not elsewhere classified; Z72.0 Tobacco use; E11.9 Type 2 diabetes mellitus without complications; I08.1 Rheumatic disorders of both mitral and tricuspid valves; Z79.899 Other long term (current) drug therapy; E11.42 Type 2 diabetes mellitus with diabetic polyneuropathy; Z79.4 Long term (current) use of insulin; E66.3 Overweight; Z68.25 Body mass index [BMI] 25.0-25.9, adult; N20.0 Calculus of kidney
CPT/HCPCS: 36415; 71045; 71275; 76705; 80048; 80053; 80061; 81001; 82550; 82553; 82948; 83036; 83605; 83690; 83735; 83880; 84484; 85025; 85379; 85610; 85730; 86361; 87040; 87086; 93005; 93306; 99285; J0456; J1644; J2270; J2405; J2543; J3370; J7030; Q9967